=== PATIENT | male | born 1985 | race Hispanic/Latino ===

== ENCOUNTER 2023-07-16 02:35 | Observation (INO) | payer OTHER ==
[2023-07-16 03:39] LABS: #Basophils 0.1 thou/uL (0.0-0.2); #Eosinphils 0.2 thou/uL (0.0-0.7); #Monocytes 0.5 thou/uL (0.11-0.59); #Neutrophils 5.8 thou/uL (1.40-6.50); %Basophils 0.6 % (0.0-1.0); %Eosinophils 2.8 % (0.0-10.0); %Lymphocytes 19.5 % (21.0-51.0); %Monocytes 6.1 % (0.0-10.0); %Neutrophils 70.3 % (42.0-75.0); Hematocrit 44.9 % (42.0-52.0); Hemoglobin 14.7 g/dL (14.0-18.0); Mean Corpuscular HGB CONC 32.7 g/dL (32.0-36.0); Mean Corpuscular Hemoglobin 28.4 pg (27.0-31.0); Mean Corpuscular Volume 86.7 fl (78.0-98.0); Mean Platelet Volume 9.2 fL (7.4-10.4); Platelet Count 241 10x3/uL (130-400); RBC Distribution Width 12.3 % (11.5-14.5); Red Blood Cell (RBC) Count 5.18 mill/uL (4.70-6.10); White Blood Cell (WBC) Count 8.3 10x3/uL (4.8-10.8)
[2023-07-16 04:03] LABS: ALT (SGPT) 34 U/L (8-55); AST (SGOT) 16 U/L (5-34); Alkaline Phosphatase 89 U/L (40-110); Anion Gap 13 mmol/L (10-20); BUN (Urea Nitrogen) 25 mg/dL (8.9-20.6); Bilirubin, Total 0.3 mg/dL (0.2-1.2); Calc. Creatinine Clearance 0 mL/min (70-130); Calcium 8.8 mg/dL (7.8-10.44); Carbon Dioxide 22 mmol/L (22-29); Chloride 108 mmol/L (98-107); Estimated GFR 112; Globulin 3.3 g/dL (2.4-3.5); Glucose 194 mg/dL (70-105); Potassium 3.9 mmol/L (3.5-5.1); Protein, Total 7.3 g/dL (6.0-8.3); Sodium 139 mmol/L (136-145)
[2023-07-16 04:06] LABS: Troponin I Less than 0.010 ng/mL (< 0.028)
[2023-07-16] MEDS ORDERED: Acetaminophen 325 MG TAB PO PRN (05:50)
[2023-07-16] MEDS ORDERED: Ondansetron PF 4 MG/2 ML Vial IVP PRN (05:50)
[2023-07-16] MEDS ORDERED: Ondansetron ODT 4 MG TAB PO PRN (05:50)
[2023-07-16] MEDS ORDERED: Nitroglycerin 0.4 MG TAB (25 Tab Bottle) SL PRN (05:50)
[2023-07-16] MEDS ORDERED: Acetaminophen 650 MG Suppository PR PRN (05:50)
[2023-07-16] MEDS ORDERED: Aspirin Chewable 81 MG TAB PO SCH ×2 (06:15→09:00)
[2023-07-16 06:40] VITALS: BMI 34.2
[2023-07-16 06:42] VITALS: TEMP 97.9
[2023-07-16] MEDS ORDERED: Aspirin 325 MG TAB ONE (06:44)
[2023-07-16] MEDS ORDERED: Aspirin 325 mg Enteric Coated Tablet PO SCH (06:45)
[2023-07-16 06:58] LABS: Magnesium 1.9 mg/dL (1.6-2.6)
[2023-07-16 07:03] LABS: Troponin I Less than 0.010 ng/mL (< 0.028)
[2023-07-16] MEDS ORDERED: Regadenoson 0.4 MG/5 ML SYRINGE ONE (10:15)
[2023-07-16] MEDS ORDERED: Amoxicillin/Potassium Clav 875 MG TAB PO SCH ×2 (10:45→21:00)
[2023-07-16] MEDS ORDERED: Amoxicillin/Potassium Clav 875 MG TAB ONE (12:17)
[2023-07-16 12:37] LABS: Troponin I Less than 0.010 ng/mL (< 0.028)
[2023-07-16 13:04] VITALS: BP 118/90
[2023-07-16 15:19] LABS: Amphetamine Not Detected (NotDetected); Barbiturates Screen Not Detected (NotDetected); Benzodiazepine Screen Not Detected (NotDetected); Cocaine Metabolite Screen Not Detected (NotDetected); Methadone Not Detected (NotDetected); Methamphetamine Not Detected (NotDetected); Opiate Screen Not Detected (NotDetected); Oxycodone Screen Not Detected (NotDetected); Phencyclidine (PCP) Not Detected (NotDetected); THC/Cannabinoid Screen Detected (NotDetected); Tricyclic Screen Not Detected (NotDetected)
== END 2023-07-16 16:06 | disposition home or self-care (01) ==
LOC: ERS 02:35 → ERHOLD 05:50
PROVIDERS: ADMIT Student in an Organized Health Care Education/Training Program; ATTEND Nurse Practitioner Family
DX: R07.9 Chest pain, unspecified (principal); I10 Essential (primary) hypertension; E11.9 Type 2 diabetes mellitus without complications; K04.7 Periapical abscess without sinus; Z79.84 Long term (current) use of oral hypoglycemic drugs; Z79.2 Long term (current) use of antibiotics; Z79.899 Other long term (current) drug therapy; Z90.89 Acquired absence of other organs
CPT/HCPCS: 36415; 71045; 78452; 80053; 80306; 83036; 83735; 84484; 85025; 85379; 93005; 93017; A9502; G0378; J2785